=== PATIENT | female | born 1980 | race Caucasian/White ===

== ENCOUNTER → 2024-11-05 14:20 | Outpatient (REF) | payer BC, SELFPAY | LOC: RAD 14:20 | PROVIDERS: ATTENDING PHYSICIAN Obstetrics & Gynecology; FAMILY PHYSICIAN Student in an Organized Health Care Education/Training Program | DX: N94.6 Dysmenorrhea, unspecified (principal) | CPT/HCPCS: 76830; 76856 ==

== ENCOUNTER → 2024-12-01 19:01 | Outpatient (REF) | payer BC, SELFPAY | LOC: MRI 3T 19:01 | PROVIDERS: ATTENDING PHYSICIAN Student in an Organized Health Care Education/Training Program; FAMILY PHYSICIAN Family Medicine | DX: N94.6 Dysmenorrhea, unspecified (principal) | CPT/HCPCS: 72197; A9575 ==